=== PATIENT | female | born 1995 | race Hispanic/Latino ===

== ENCOUNTER 2020-05-11 19:20 | Inpatient (IN) | payer SELFPAY ==
[~2020-05-11] VITALS: Ht 167.6 cm; Wt 114.3 kg
[2020-05-11 19:57] LABS: EOSINOPHILS % (AUTO) 2.2 % (0.0-8.0); HEMATOCRIT 30.9 % (36-48); LYMPHOCYTES % (AUTO) 20.1 % (21.0-51.0); MEAN CORPUSCULAR HEMOGLOBIN 31.3 pg (27.0-33.0); MEAN CORPUSCULAR HGB CONC 33.7 g/dL (32.0-36.0); MEAN CORPUSCULAR VOLUME 93.1 fL (79-99); NEUTROPHILS % (AUTO) 69.2 % (40.0-77.0); PLATELET COUNT (AUTO) 260 K/uL (130-400); RED BLOOD CELL COUNT(AUTO) 3.32 MIL/uL (4.00-5.50); RED CELL DISTRIBUTION WIDTH 13.9 % (11.0-15.5); WHITE BLOOD COUNT (AUTO) 10.4 K/uL (4.8-10.8)
[2020-05-11] MEDS ORDERED: METOCLOPRAMIDE 10 MG/2 ML VIAL ONE (19:59)
[2020-05-11] MEDS ORDERED: ONDANSETRON HCL 4 MG/2 ML VIAL ONE (19:59)
[2020-05-11] MEDS ORDERED: FAMOTIDINE/PF 20 MG/2 ML VIAL IV ONE (20:00)
[2020-05-11] MEDS ORDERED: PANTOPRAZOLE 40 MG/VIAL ONE (20:00)
[2020-05-11 20:01] LABS: APPEARANCE,URINE Turbid (CLEAR); BILIRUBIN,URINE Moderate (NEGATIVE); COLOR,URINE Dark Yellow (YELLOW); GLUCOSE, URINE (UA) Negative (NEGATIVE); KETONES,URINE Negative (NEGATIVE); LEUKOCYTE ESTERASE ,URINE Large (NEGATIVE); NITRATE,URINE Negative (NEGATIVE); OCCULT BLOOD,URINE Negative (NEGATIVE); PH,URINE 6.5 (5.0-8.0); PROTEIN,URINE Negative (NEGATIVE)
[2020-05-11 20:03] LABS: HCG,QUAL RESULT NEGATIVE (NEGATIVE)
[2020-05-11 20:11] LABS: ALBUMIN 3.6 g/dL (3.5-5.0); BILIRUBIN,TOTAL 3.4 mg/dL (0.2-1.0); CREATININE 0.9 mg/dL (0.5-1.5); POTASSIUM 3.3 mmol/L (3.5-5.1); TOTAL PROTEIN, SERUM 7.4 g/dL (6.0-8.3)
[2020-05-11 20:31] LABS: BACTERIA,URINE Many /HPF (None Seen); RBC,URINE None Seen /HPF (0-1)
[2020-05-11] MEDS ORDERED: ZOSYN 3.375GM+NS 50ML 50 ML IV ONE (21:27)
[2020-05-11] MEDS ORDERED: GUAIFENESIN-DM 200/20 MG 10 ML PO PRN (22:45)
[2020-05-11] MEDS ORDERED: ACETAMINOPHEN 325 MG TAB PO PRN ×2 (22:45)
[2020-05-11] MEDS ORDERED: LACTULOSE 20 GM/30 ML UDCUP PO PRN (22:45)
[2020-05-11] MEDS ORDERED: DiphenhydrAMINE HCL 50 MG/ML VIAL IV PRN (22:45)
[2020-05-11] MEDS ORDERED: DIPHENHYDRAMINE HCL 25 MG CAPSULE PO PRN (22:45)
[2020-05-11] MEDS: LACTATED RINGERS 1000ML 1,000 ML IV SCH (22:45)
[2020-05-11] MEDS ORDERED: MAG HYDROX/AL HYDROX/SIMETH ES 30 ML SUSP UDCUP PO PRN (22:45)
[2020-05-11] MEDS ORDERED: NITROGLYCERIN 0.4 MG SL TAB SL PRN (22:45)
[2020-05-11 23:01] LABS: ALBUMIN 3.8 g/dL (3.5-5.0); BILIRUBIN,DIRECT 2.5 mg/dL (0.0-0.3); BILIRUBIN,TOTAL 3.6 mg/dL (0.2-1.0); TOTAL PROTEIN, SERUM 7.2 g/dL (6.0-8.3)
[2020-05-12] VITALS (7 sets, daily range): BP systolic 101–124; BP diastolic 45–76
[2020-05-12] MEDS: LACTATED RINGERS 1000ML 1,000 ML IV SCH ×2 (04:17→19:01)
[2020-05-12] MEDS: LEVOTHYROXINE 150 MCG TABLET PO SCH (05:29)
[2020-05-12 05:49] LABS: HEMATOCRIT 31.9 % (36-48); MEAN CORPUSCULAR HEMOGLOBIN 30.3 pg (27.0-33.0); MEAN CORPUSCULAR HGB CONC 32.6 g/dL (32.0-36.0); MONOCYTES % (AUTO) 8.7 % (3.0-13.0); NEUTROPHILS % (AUTO) 68.9 % (40.0-77.0); PLATELET COUNT (AUTO) 287 K/uL (130-400); RED BLOOD CELL COUNT(AUTO) 3.43 MIL/uL (4.00-5.50); RED CELL DISTRIBUTION WIDTH 13.8 % (11.0-15.5)
[2020-05-12 06:07] LABS: BILIRUBIN,TOTAL 3.2 mg/dL (0.2-1.0); CREATININE 0.8 mg/dL (0.5-1.5); POTASSIUM 3.2 mmol/L (3.5-5.1); TOTAL PROTEIN, SERUM 6.4 g/dL (6.0-8.3)
[2020-05-12] MEDS ORDERED: POTASSIUM CHLORIDE 20MEQ/100ML 100 ML IV PRN ×2 (08:30→20:15)
[2020-05-12] MEDS: FAMOTIDINE/PF 20 MG/2 ML VIAL IV SCH ×2 (09:53→20:42)
[2020-05-12] MEDS ORDERED: POTASSIUM CHLORIDE 10% ELIXIR 20 MEQ/15 ML UDCUP PO PRN (20:15)
[2020-05-12] MEDS ORDERED: LIDOCAINE HCL-MPF 1% 2ML VIAL IV PRN (20:15)
[2020-05-12] MEDS: POTASSIUM CHLORIDE 20 MEQ ERTAB PO PRN ×2 (20:42→23:18)
[2020-05-13 03:56] VITALS: BP 99/58
[2020-05-13 05:11] LABS: BASOPHILS % (AUTO) 1.1 % (0.0-5.0); HEMATOCRIT 32.3 % (36-48); LYMPHOCYTES % (AUTO) 28.2 % (21.0-51.0); MEAN CORPUSCULAR HEMOGLOBIN 30.7 pg (27.0-33.0); MEAN CORPUSCULAR HGB CONC 32.8 g/dL (32.0-36.0); MEAN CORPUSCULAR VOLUME 93.6 fL (79-99); MONOCYTES % (AUTO) 9.5 % (3.0-13.0); NEUTROPHILS % (AUTO) 57.4 % (40.0-77.0); PLATELET COUNT (AUTO) 293 K/uL (130-400); RED BLOOD CELL COUNT(AUTO) 3.45 MIL/uL (4.00-5.50); WHITE BLOOD COUNT (AUTO) 7.3 K/uL (4.8-10.8)
[2020-05-13] MEDS: LEVOTHYROXINE 150 MCG TABLET PO SCH (05:28)
[2020-05-13 05:29] LABS: ALBUMIN 3.1 g/dL (3.5-5.0); BILIRUBIN,TOTAL 3.1 mg/dL (0.2-1.0); CREATININE 0.9 mg/dL (0.5-1.5); POTASSIUM 3.6 mmol/L (3.5-5.1); TOTAL PROTEIN, SERUM 6.7 g/dL (6.0-8.3)
[2020-05-13 07:53] VITALS: BP 98/56
[2020-05-13] MEDS: FAMOTIDINE/PF 20 MG/2 ML VIAL IV SCH ×2 (09:12→21:21)
[2020-05-13] MEDS: POTASSIUM CHLORIDE 20 MEQ ERTAB PO PRN ×2 (11:36→13:54)
[2020-05-13 11:53] VITALS: BP 94/44
[2020-05-13 16:38] VITALS: BP 103/58
[2020-05-13] MEDS ORDERED: LACTATED RINGERS 1000ML 1,000 ML IV ONE (18:34)
[2020-05-13 19:43] VITALS: BP 97/50
[2020-05-13 23:29] VITALS: BP 110/66
[2020-05-14] VITALS (22 sets, daily range): BP systolic 93–112; BP diastolic 52–74
[2020-05-14] MEDS ORDERED: LEVO150 PO (02:32)
[2020-05-14 06:37] LABS: BASOPHILS % (AUTO) 1.1 % (0.0-5.0); EOSINOPHILS % (AUTO) 1.8 % (0.0-8.0); HEMATOCRIT 33.8 % (36-48); LYMPHOCYTES % (AUTO) 24.6 % (21.0-51.0); MEAN CORPUSCULAR HEMOGLOBIN 30.6 pg (27.0-33.0); MEAN CORPUSCULAR HGB CONC 32.5 g/dL (32.0-36.0); MEAN CORPUSCULAR VOLUME 93.9 fL (79-99); MONOCYTES % (AUTO) 8.4 % (3.0-13.0); NEUTROPHILS % (AUTO) 63.2 % (40.0-77.0); PLATELET COUNT (AUTO) 319 K/uL (130-400); RED CELL DISTRIBUTION WIDTH 14.2 % (11.0-15.5); WHITE BLOOD COUNT (AUTO) 8.1 K/uL (4.8-10.8)
[2020-05-14] MEDS: LEVOTHYROXINE 150 MCG TABLET PO SCH (06:43)
[2020-05-14 06:49] LABS: ALBUMIN 3.4 g/dL (3.5-5.0); BILIRUBIN,TOTAL 3.5 mg/dL (0.2-1.0); POTASSIUM 3.7 mmol/L (3.5-5.1); TOTAL PROTEIN, SERUM 7.3 g/dL (6.0-8.3)
[2020-05-14] MEDS: FAMOTIDINE/PF 20 MG/2 ML VIAL IV SCH ×2 (09:10→20:05)
[2020-05-14] MEDS: ONDANSETRON HCL 4 MG/2 ML VIAL IV PRN (14:03)
[2020-05-14] MEDS ORDERED: BUPIVACAINE/PF 0.5% 30ML VIAL ONE (15:56)
[2020-05-14] MEDS ORDERED: LACTATED RINGERS 1000ML 1,000 ML IV ONE (16:15)
[2020-05-14] MEDS ORDERED: MIDAZOLAM HCL 1 MG/ML 2ML VIAL ONE (17:25)
[2020-05-14] MEDS ORDERED: ROCURONIUM 10MG/1ML SYR 10 MG/ML ML ONE (17:27)
[2020-05-14] MEDS ORDERED: PROPOFOL 10 MG/ML 20ML VIAL IV ONE (17:27)
[2020-05-14] MEDS ORDERED: SUCCINYLCHOLINE CHLORIDE 20 MG/ML 10 ML VIAL ONE (17:27)
[2020-05-14] MEDS ORDERED: LIDOCAINE PF 2% 5ML ABBOJECT ONE (17:27)
[2020-05-14] MEDS ORDERED: FENTANYL CITRATE PF 50 MCG/1 ML 2ML VIAL ONE (17:27)
[2020-05-14] MEDS ORDERED: NEOSTIGMINE 5MG/5ML SYR IV ONE (17:46)
[2020-05-14] MEDS ORDERED: GLYCOPYRROLATE 1 MG/5 ML SYRINGE ONE (17:46)
[2020-05-14] MEDS ORDERED: CEFAZOLIN SODIUM 1 GM VIAL ONE (17:49)
[2020-05-14] MEDS ORDERED: ONDANSETRON HCL 4 MG/2 ML VIAL ONE (17:49)
[2020-05-14] MEDS ORDERED: MEPERIDINE-PF 25 MG/ML SYG ONE (18:27)
[2020-05-14] MEDS ORDERED: ONDANSETRON HCL 4 MG/2 ML VIAL IVP SCH (19:00)
[2020-05-14] MEDS ORDERED: MORPHINE SULFATE 4 MG/1ML SYG ONE (19:58)
[2020-05-14] MEDS ORDERED: MORPHINE SULFATE 4 MG/1ML SYG IVP PRN (20:00)
[2020-05-14] MEDS: CEFAZOLIN SODIUM 1 GM VIAL IVP SCH (20:00)
[2020-05-15 04:00] VITALS: BP 95/54
[2020-05-15] MEDS: CEFAZOLIN SODIUM 1 GM VIAL IVP SCH ×2 (04:51→11:25)
[2020-05-15] MEDS: ACETAMINOPHEN-CODEINE 300/30MG TAB PO PRN ×2 (04:56→10:10)
[2020-05-15 05:38] LABS: HEMATOCRIT 36.3 % (36-48); MEAN CORPUSCULAR HEMOGLOBIN 31.1 pg (27.0-33.0); MEAN CORPUSCULAR HGB CONC 33.1 g/dL (32.0-36.0); RED BLOOD CELL COUNT(AUTO) 3.86 MIL/uL (4.00-5.50); RED CELL DISTRIBUTION WIDTH 14.5 % (11.0-15.5); WHITE BLOOD COUNT (AUTO) 17.3 K/uL (4.8-10.8)
[2020-05-15 06:06] LABS: ALBUMIN 3.8 g/dL (3.5-5.0); BILIRUBIN,TOTAL 4.9 mg/dL (0.2-1.0)
[2020-05-15] MEDS: LEVOTHYROXINE 150 MCG TABLET PO SCH (06:45)
[2020-05-15 07:50] VITALS: BP 92/40
[2020-05-15] MEDS: FAMOTIDINE/PF 20 MG/2 ML VIAL IV SCH ×2 (10:09→21:36)
[2020-05-15 12:00] VITALS: BP 106/65
[2020-05-15] MEDS: ONDANSETRON HCL 4 MG/2 ML VIAL IV PRN (12:34)
[2020-05-15] MEDS: ZOSYN 3.375GM+NS 50ML 50 ML IV SCH ×2 (13:35→21:36)
[2020-05-15 16:00] VITALS: BP 92/36
[2020-05-15 20:00] VITALS: BP 95/48
[2020-05-16] VITALS (7 sets, daily range): BP systolic 95–108; BP diastolic 52–62
[2020-05-16 05:09] LABS: HEMATOCRIT 31.8 % (36-48); MEAN CORPUSCULAR HEMOGLOBIN 30.4 pg (27.0-33.0); MEAN CORPUSCULAR HGB CONC 32.4 g/dL (32.0-36.0); MEAN CORPUSCULAR VOLUME 93.8 fL (79-99); MONOCYTES % (AUTO) 7.2 % (3.0-13.0); NEUTROPHILS % (AUTO) 69.9 % (40.0-77.0); PLATELET COUNT (AUTO) 303 K/uL (130-400); RED BLOOD CELL COUNT(AUTO) 3.39 MIL/uL (4.00-5.50); RED CELL DISTRIBUTION WIDTH 14.5 % (11.0-15.5); WHITE BLOOD COUNT (AUTO) 9.7 K/uL (4.8-10.8)
[2020-05-16 05:44] LABS: ALBUMIN 3.3 g/dL (3.5-5.0); BILIRUBIN,TOTAL 4.8 mg/dL (0.2-1.0); POTASSIUM 3.4 mmol/L (3.5-5.1); TOTAL PROTEIN, SERUM 7.1 g/dL (6.0-8.3)
[2020-05-16] MEDS: LEVOTHYROXINE 150 MCG TABLET PO SCH (06:07)
[2020-05-16] MEDS: ZOSYN 3.375GM+NS 50ML 50 ML IV SCH ×2 (06:07→12:04)
[2020-05-16] MEDS: FAMOTIDINE/PF 20 MG/2 ML VIAL IV SCH ×2 (12:04→20:38)
[2020-05-16 13:36] LABS: APPEARANCE,URINE Turbid (CLEAR); BILIRUBIN,URINE Moderate (NEGATIVE); COLOR,URINE Dark Yellow (YELLOW); GLUCOSE, URINE (UA) Negative (NEGATIVE); KETONES,URINE Negative (NEGATIVE); LEUKOCYTE ESTERASE ,URINE Large (NEGATIVE); NITRATE,URINE Negative (NEGATIVE); OCCULT BLOOD,URINE Trace (NEGATIVE); PH,URINE 5.5 (5.0-8.0); PROTEIN,URINE Negative (NEGATIVE)
[2020-05-16 14:30] LABS: BACTERIA,URINE Many /HPF (None Seen); SQUAMOUS EPITHELIAL CELL,UR Many /HPF (0-2); TRICHOMONAS,URINE Moderate /LPF (None Seen)
[2020-05-16 14:31] LABS: WBC,URINE 51-100 /HPF (0-1)
[2020-05-16] MEDS: AMOXICILLIN/POTASSIUM CLAV 875-125 TABLET PO SCH (16:32)
[2020-05-16] MEDS: POTASSIUM CHLORIDE 20 MEQ ERTAB PO PRN ×2 (18:01→20:39)
[2020-05-17] MEDS: AMOXICILLIN/POTASSIUM CLAV 875-125 TABLET PO SCH ×2 (01:02→12:23)
[2020-05-17 03:34] VITALS: BP 93/52
[2020-05-17 05:03] LABS: BASOPHILS % (AUTO) 1.2 % (0.0-5.0); EOSINOPHILS % (AUTO) 1.4 % (0.0-8.0); HEMATOCRIT 31.9 % (36-48); LYMPHOCYTES % (AUTO) 21.9 % (21.0-51.0); MEAN CORPUSCULAR HEMOGLOBIN 30.2 pg (27.0-33.0); MEAN CORPUSCULAR VOLUME 94.4 fL (79-99); MONOCYTES % (AUTO) 7.7 % (3.0-13.0); NEUTROPHILS % (AUTO) 67.1 % (40.0-77.0); PLATELET COUNT (AUTO) 305 K/uL (130-400); RED BLOOD CELL COUNT(AUTO) 3.38 MIL/uL (4.00-5.50); RED CELL DISTRIBUTION WIDTH 14.7 % (11.0-15.5); WHITE BLOOD COUNT (AUTO) 8.1 K/uL (4.8-10.8)
[2020-05-17 05:23] LABS: ALBUMIN 3.3 g/dL (3.5-5.0); BILIRUBIN,TOTAL 5.7 mg/dL (0.2-1.0); CREATININE 0.9 mg/dL (0.5-1.5); POTASSIUM 3.6 mmol/L (3.5-5.1); TOTAL PROTEIN, SERUM 7.1 g/dL (6.0-8.3)
[2020-05-17] MEDS: LEVOTHYROXINE 150 MCG TABLET PO SCH (06:58)
[2020-05-17 07:22] VITALS: BP 103/63
[2020-05-17] MEDS: FAMOTIDINE/PF 20 MG/2 ML VIAL IV SCH ×2 (09:35→20:39)
[2020-05-17] MEDS: POTASSIUM CHLORIDE 20 MEQ ERTAB PO PRN ×2 (09:40→12:30)
[2020-05-17 10:58] VITALS: BP 104/59
[2020-05-17 16:09] VITALS: BP 118/60
[2020-05-17 19:52] VITALS: BP 103/63
[2020-05-17] MEDS: ACETAMINOPHEN-CODEINE 300/30MG TAB PO PRN (20:40)
[2020-05-17 23:53] VITALS: BP 115/71
[2020-05-18] MEDS: AMOXICILLIN/POTASSIUM CLAV 875-125 TABLET PO SCH ×3 (02:50→21:32)
[2020-05-18 04:53] VITALS: BP 92/56
[2020-05-18 04:53] LABS: BASOPHILS % (AUTO) 0.5 % (0.0-5.0); EOSINOPHILS % (AUTO) 0.9 % (0.0-8.0); HEMATOCRIT 32.4 % (36-48); LYMPHOCYTES % (AUTO) 16.3 % (21.0-51.0); MEAN CORPUSCULAR HEMOGLOBIN 31.3 pg (27.0-33.0); MEAN CORPUSCULAR HGB CONC 33.6 g/dL (32.0-36.0); MEAN CORPUSCULAR VOLUME 93.1 fL (79-99); MONOCYTES % (AUTO) 5.7 % (3.0-13.0); NEUTROPHILS % (AUTO) 75.8 % (40.0-77.0); PLATELET COUNT (AUTO) 317 K/uL (130-400); RED BLOOD CELL COUNT(AUTO) 3.48 MIL/uL (4.00-5.50); WHITE BLOOD COUNT (AUTO) 9.2 K/uL (4.8-10.8)
[2020-05-18 05:31] LABS: ALBUMIN 3.3 g/dL (3.5-5.0); CREATININE 0.7 mg/dL (0.5-1.5); POTASSIUM 3.9 mmol/L (3.5-5.1); TOTAL PROTEIN, SERUM 7.5 g/dL (6.0-8.3)
[2020-05-18] MEDS: LEVOTHYROXINE 150 MCG TABLET PO SCH (06:41)
[2020-05-18 08:07] VITALS: BP 98/62
[2020-05-18] MEDS: FAMOTIDINE/PF 20 MG/2 ML VIAL IV SCH ×2 (10:21→21:32)
[2020-05-18 11:26] VITALS: BP 102/72
[2020-05-18 16:25] VITALS: BP 94/63
[2020-05-18 20:33] VITALS: BP 105/62
[2020-05-19] VITALS (8 sets, daily range): BP systolic 93–105; BP diastolic 42–71
[2020-05-19] MEDS: LEVOTHYROXINE 150 MCG TABLET PO SCH (01:51)
[2020-05-19 05:15] LABS: BASOPHILS % (AUTO) 0.7 % (0.0-5.0); EOSINOPHILS % (AUTO) 1.6 % (0.0-8.0); HEMATOCRIT 31.9 % (36-48); LYMPHOCYTES % (AUTO) 24.4 % (21.0-51.0); MEAN CORPUSCULAR HEMOGLOBIN 31.4 pg (27.0-33.0); MEAN CORPUSCULAR HGB CONC 33.5 g/dL (32.0-36.0); MEAN CORPUSCULAR VOLUME 93.5 fL (79-99); MONOCYTES % (AUTO) 6.4 % (3.0-13.0); PLATELET COUNT (AUTO) 330 K/uL (130-400); RED BLOOD CELL COUNT(AUTO) 3.41 MIL/uL (4.00-5.50); RED CELL DISTRIBUTION WIDTH 15.3 % (11.0-15.5); WHITE BLOOD COUNT (AUTO) 9.9 K/uL (4.8-10.8)
[2020-05-19 05:40] LABS: ALBUMIN 3.4 g/dL (3.5-5.0); BILIRUBIN,TOTAL 3.8 mg/dL (0.2-1.0); CREATININE 0.8 mg/dL (0.5-1.5); POTASSIUM 3.4 mmol/L (3.5-5.1); TOTAL PROTEIN, SERUM 7.6 g/dL (6.0-8.3)
[2020-05-19] MEDS: FAMOTIDINE/PF 20 MG/2 ML VIAL IV SCH ×2 (10:15→20:56)
[2020-05-19] MEDS: AMOXICILLIN/POTASSIUM CLAV 875-125 TABLET PO SCH ×2 (13:30→20:56)
[2020-05-20] VITALS (17 sets, daily range): BP systolic 95–114; BP diastolic 52–72
[2020-05-20 06:07] LABS: BASOPHILS % (AUTO) 0.7 % (0.0-5.0); EOSINOPHILS % (AUTO) 1.6 % (0.0-8.0); HEMATOCRIT 32.7 % (36-48); LYMPHOCYTES % (AUTO) 24.4 % (21.0-51.0); MEAN CORPUSCULAR HEMOGLOBIN 31.6 pg (27.0-33.0); MEAN CORPUSCULAR VOLUME 95.6 fL (79-99); MONOCYTES % (AUTO) 6.9 % (3.0-13.0); NEUTROPHILS % (AUTO) 65.1 % (40.0-77.0); PLATELET COUNT (AUTO) 351 K/uL (130-400); RED BLOOD CELL COUNT(AUTO) 3.42 MIL/uL (4.00-5.50); RED CELL DISTRIBUTION WIDTH 15.4 % (11.0-15.5); WHITE BLOOD COUNT (AUTO) 9.4 K/uL (4.8-10.8)
[2020-05-20 06:21] LABS: ALBUMIN 3.4 g/dL (3.5-5.0); CREATININE 0.8 mg/dL (0.5-1.5); POTASSIUM 3.7 mmol/L (3.5-5.1); TOTAL PROTEIN, SERUM 7.8 g/dL (6.0-8.3)
[2020-05-20] MEDS: LEVOTHYROXINE 150 MCG TABLET PO SCH (06:30)
[2020-05-20] MEDS ORDERED: SUCCINYLCHOLINE 200MG/10ML SYR ONE (11:08)
[2020-05-20] MEDS ORDERED: PROPOFOL 1000 MG/100 ML 100 ML IV ONE (11:08)
[2020-05-20] MEDS ORDERED: IOHEXOL-350 50ML VIAL IV ONE (11:09)
[2020-05-20] MEDS ORDERED: INDOMETHACIN 50 MG SUPP.RECT RC ONE (12:15)
[2020-05-20] MEDS ORDERED: AMOX1TAB16 PO (12:41)
[2020-05-20] MEDS ORDERED: AMOXICILLIN/POTASSIUM CLAV 875-125 TABLET PO SCH (17:30)
== END 2020-05-20 18:20 | disposition home or self-care (01) | DRG 418 ==
LOC: EDH 19:20 → EDHIP 19:21 → UNDOADMIN 22:39 → EDHIP 22:39 → 3BH 05-12 00:13 → 3CH 05-12 10:13 → 3BH 05-14 17:21 → WSH 05-19 18:29
PROVIDERS: ADMIT Family Medicine; ATTEND Family Medicine
PROC: 0FT44ZZ Resection of Gallbladder, Percutaneous Endoscopic Approach (ICD-10-PCS; principal; 2020-05-14 17:26)
PROC: 0F798DZ Dilation of Common Bile Duct with Intraluminal Device, Via Natural or Artificial Opening Endoscopic (ICD-10-PCS; 2020-05-20)
DX: K80.62 Calculus of gallbladder and bile duct with acute cholecystitis without obstruction (principal); E87.1 Hypo-osmolality and hyponatremia; Z68.41 Body mass index [BMI] 40.0-44.9, adult; E66.9 Obesity, unspecified; K82.8 Other specified diseases of gallbladder; K76.0 Fatty (change of) liver, not elsewhere classified; E03.9 Hypothyroidism, unspecified; K83.8 Other specified diseases of biliary tract; Z92.3 Personal history of irradiation; Z79.890 Hormone replacement therapy; Z85.850 Personal history of malignant neoplasm of thyroid
CPT/HCPCS: 36415; 43264; 43274; 74181; 74328; 74330; 76705; 80053; 80076; 81001; 81025; 83690; 83735; 85025; 85027; 87088; 96523; A4606; C1769; C1773; C2625; C9113; G0378; J0330; J0690; J1200; J2001; J2175; J2250; J2270; J2405; J2543; J2704; J2710; J2765; J3010; J3480; J3490; J7030; J7120; Q9967